=== PATIENT | male | born 1955 | race Caucasian/White ===

== ENCOUNTER 2019-10-12 21:52 | Emergency (ER) | payer SELFPAY ==
--- NOTE | 2019-10-12 21:58 | NUR ---
PATIENT CALLED TO BE TRIAGE NO RESPONSE PATIENT LEFT WITHOUT BEING SEEN BY DR. RAMÍREZ. NO FURTHER CARE PROVIDED FOR PATIENT.
--- NOTE | 2019-10-12 22:05 | NUR ---
CALLED FOR THE SECOND TIME , NO RESPONSE
--- NOTE | 2019-10-12 22:10 | NUR ---
CALLED FOR THE THIRD TIME , NO RESPONSE
== END 2019-10-12 21:58 | disposition left against medical advice (07) ==
LOC: MED 21:52
DX: Z53.21 Procedure and treatment not carried out due to patient leaving prior to being seen by health care provider (principal)